=== PATIENT | female | born 1955 | race African-American/Black ===

== ENCOUNTER → 2016-11-08 | Outpatient (CLI) | payer OTHER ==
--- NOTE | 2016-11-08 09:36 | RAD ---
CT abdomen and pelvis without contrast History: Left flank pain for one week, hematuria, recurrent urinary tract infection. Comparison: None. Technique: Helical CT of the abdomen and pelvis was performed without intravenous or oral contrast. Axial, sagittal, and coronal reconstructions were obtained. One or more of the following individualized dose reduction techniques were utilized for the study: Automated exposure control Adjustment of mA and/or kV according to patient's size Use of iterative reconstruction technique. Findings: Evaluation of the solid organs is limited by lack of intravenous contrast. Evaluation of enteric structures may be limited by lack of oral contrast. 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 The spleen, pancreas, gallbladder, and bilateral adrenal glands are unremarkable. There is no evidence of bowel obstruction. No free air or free fluid is identified in the abdomen or pelvis. Appendix appears within normal limits. Urinary bladder is unremarkable. Colonic diverticulosis is noted, but no diverticulitis is appreciated. A few uterine calcifications are seen. There is apparent endometrial fluid versus endometrial thickening. Both ureters are free of stone or obstruction. Both kidneys demonstrate multiple low-density lesions which are not adequately characterized in this examination, but attenuation of the lesions indicate that statistically they should be cysts. A few of the low-density lesions demonstrate mild foci of peripheral calcification, especially right kidney upper and lower poles. The largest right lesion measures 2.6 cm. The largest left lesion measures 3.3 cm. Impression: 1. No acute abnormality identified in the abdomen or pelvis. No evidence of ureteral stone or obstruction. 2. Both kidneys demonstrate low-density lesions. A few of the right lesions demonstrate mild peripheral calcification. Consider ultrasound imaging to confirm cystic nature of bilateral renal lesions. 3. Apparent endometrial thickening versus fluid. Pelvic ultrasound could be helpful for further evaluation.
== END | disposition home or self-care (01) ==
LOC: CT 08:59
PROVIDERS: ATTEND Urology
DX: N39.0 Urinary tract infection, site not specified (principal); R10.9 Unspecified abdominal pain; R31.29 Other microscopic hematuria
CPT/HCPCS: 74176

== ENCOUNTER → 2016-12-13 | Outpatient (CLI) | payer OTHER ==
--- NOTE | 2016-12-13 12:23 | RAD ---
INDICATION: Evaluation of renal cystic lesions COMPARISON: CT from 11/08/2016 TECHNIQUE: Grayscale and color ultrasound images obtained of the bilateral kidneys and bladder. FINDINGS: Right Kidney: 10.3 cm. No hydronephrosis. Left Kidney: 11.0 cm. No hydronephrosis. Bladder: No gross abnormality. There are multiple renal cystic lesions bilaterally. For example 27 x 24 mm cystic lesion within the right kidney and additional 25 mm cystic lesion right kidney. Multiple cystic lesions are also seen in the left kidney measuring up to 37 x 31 mm. IMPRESSION: Multiple cystic lesions are seen bilaterally. Would be difficult to exclude a complex component given that portions are obscured. There are some internal echoes seen in a portion of the cystic lesions but difficult to tell if this is secondary to regions of complexity or is artifact. Would obtain a follow-up examination in 6-12 months to ensure no growth. Alternatively if more information is desired now renal protocol MRI could better evaluate.
== END | disposition home or self-care (01) ==
LOC: US 10:29
PROVIDERS: ATTEND Urology
DX: N28.1 Cyst of kidney, acquired (principal)
CPT/HCPCS: 76770